=== PATIENT | female | born 1985 | race Caucasian/White ===

== ENCOUNTER 2024-09-04 18:09 | Emergency (ER) | payer MEDICAID ==
[~2024-09-04] VITALS: Ht 170.2 cm; Wt 127.3 kg
[2024-09-04] MEDS ORDERED: FURO-149 PO (21:07)
[2024-09-04 21:36] VITALS: BP 142/82; PULSE 78; RESP 16; TEMP 98; O2SAT 99
== END 2024-09-04 21:39 | disposition home or self-care (01) ==
LOC: ER 18:10
DX: R60.0 Localized edema (principal); Z88.2 Allergy status to sulfonamides; Z88.5 Allergy status to narcotic agent
CPT/HCPCS: 93971; 99284